=== PATIENT | female | born 1950 | race Caucasian/White ===

== ENCOUNTER 2018-04-14 08:59 | Emergency (ER) | payer OTHER, MEDICAID ==
[~2018-04-14] VITALS: Ht 157.5 cm; Wt 54.4 kg
[2018-04-14 09:03] VITALS: BP_SYST 192
[2018-04-14 09:21] VITALS: BP_SYST 160
[2018-04-14] MEDS ORDERED: DIPHENHYDRAMINE HCL 50 MG CAPSULE PO ONE (09:30)
== END 2018-04-14 09:53 | disposition home or self-care (01) ==
LOC: SED 08:59
DX: S80.862A Insect bite (nonvenomous), left lower leg, initial encounter (principal); S80.861A Insect bite (nonvenomous), right lower leg, initial encounter; I10 Essential (primary) hypertension; W57.XXXA Bitten or stung by nonvenomous insect and other nonvenomous arthropods, initial encounter; Y93.89 Activity, other specified; Y92.89 Other specified places as the place of occurrence of the external cause; Y99.8 Other external cause status
CPT/HCPCS: 99283; Q0163

== ENCOUNTER 2018-07-24 13:50 | Emergency (ER) | payer OTHER, MEDICAID ==
[~2018-07-24] VITALS: Ht 157.5 cm; Wt 49.9 kg
[2018-07-24 13:54] VITALS: BP_SYST 145
--- NOTE | 2018-07-24 13:54 | NUR ---
Patient to ER bed 07 to gown for evaluation. Side rails up.
--- NOTE | 2018-07-24 13:55 | NUR ---
ER NICOLETTE Marks examining patient.
--- NOTE | 2018-07-24 13:55 | NUR ---
Pt complains of bug bites to right shoulder, arm and right back. Pt complains of itching and pain after itching. Denies SOB, n/v or fever. There are red bumps noted to right shoulder, back of arm and on right rib cage. No other injuries/complaints per pt or noted.
[2018-07-24 14:06] VITALS: BP_SYST 145
--- NOTE | 2018-07-24 14:06 | NUR ---
Patient given written and verbal discharge instructions and verbalizes understanding. ER MD discussed with patient the results and treatment provided. Patient in stable condition. ID arm band removed. Rx of hydrocortisone and hydroxyzine given. Patient educated on pain management and to follow up with PMD. Pain Scale 2. Opportunity for questions provided and answered.
== END 2018-07-24 14:06 | disposition home or self-care (01) ==
LOC: SED 13:50
DX: S30.861A Insect bite (nonvenomous) of abdominal wall, initial encounter (principal); S40.261A Insect bite (nonvenomous) of right shoulder, initial encounter; I10 Essential (primary) hypertension; W57.XXXA Bitten or stung by nonvenomous insect and other nonvenomous arthropods, initial encounter; Y93.89 Activity, other specified; Y92.89 Other specified places as the place of occurrence of the external cause; Y99.8 Other external cause status
CPT/HCPCS: 99283

== ENCOUNTER 2020-08-26 12:47 | Emergency (ER) | payer OTHER, MEDICAID ==
[~2020-08-26] VITALS: Ht 157.5 cm; Wt 54.4 kg
[2020-08-26 13:00] VITALS: BP_SYST 169
[2020-08-26 13:57] VITALS: BP_SYST 169
== END 2020-08-26 13:57 | disposition home or self-care (01) ==
LOC: SED 12:47
DX: M79.674 Pain in right toe(s) (principal); M79.675 Pain in left toe(s); I10 Essential (primary) hypertension
CPT/HCPCS: 99283